=== PATIENT | female | born 1990 | race Caucasian/White ===

== ENCOUNTER 2020-08-13 19:19 | Emergency (ER) | payer BC, SELFPAY ==
[2020-08-13 20:04] VITALS: BP 140/90; PULSE 81; RESP 19; TEMP 36.6; O2SAT 98; BMI 23.8
--- NOTE | 2020-08-13 20:19 | HMH.EDUTC ---
[facility] Disposition Clinical Impression: Exposure to COVID-19 virus, Encounter for laboratory testing for COVID-19 virus Disposition: Home, Self-Care Condition on Discharge: Good Instructions: Preventing the Spread of Coronavirus Discharge Instructions Additional Instructions: *Monitor Temp, Over the counter Motrin or Tylenol as directed/as needed Tylenol every 4 hours and Motrin every 6 hours (as long as your family doctor has told you that you can take it) for fever or pain. and straight to ER if unable to lower temp less than 101.0 after medication given *Warm salt water gargles may help to soothe the throat *Throat Lozenges *Warm fluids like tea with honey may help to soothe the throat *Sleep elevated *Humidifier/Vaporizer Follow up IMMEDIATELY for new or worsening symptoms or no Noticeable improvement over the next 48-72 hours. 911 for difficulty breathing or swallowing You was tested for today for COVID19 your test result should be back later this tonight or early in the morning call back tomorrow after 9am to the [facility] to see if your test results are back and the result You was given a handout with instructions for Self Quarantine and Self isolation for while you wait on test results and what to do if they are positive Referrals: Stephanie Saavedra [Primary Care Provider] - As needed Forms: Work/School Release Time of Disposition: 20:31 Medical Decision Making - Matias Inquiry Pt receiving controlled substance: No Matias was queried for this patient: No Vital Signs: 08/13/20 20:04 Temperature 97.9 F Temperature Source Oral Pulse Rate [Right Brachial] 81 Respiratory Rate 19 Blood Pressure [Right Arm] 140/90 Blood Pressure Mean [Right Arm] 106 Blood Pressure Source [Right Arm] Automatic Cuff Blood Pressure Position [Right Arm] Sitting 02 Sat by Pulse Oximetry 98 Oxygen Delivery Method Room Air Orders (Tests/Meds): ORDERS Category Date Time Status Covid-19 Nasal PCR ([facility]) Routine Lab 08/13/20 19:40 Received [facility] HPI - General Stated complaint: wants COVID test, Time Seen by Provider: 08/13/20 20:19 Mode of Arrival: Ambulatory Source of Information: Patient Limitations: No Limitations Description of Symptoms (Recalled from Triage Doc. by RN): PATIENT C/O RUNNY NOSE, COUGH AND BODY ACHES. REQUESTING COVID TESTING D/T EXPOSURE HEENT Symptoms (Recalled from RN notes): Yes Resp Symptoms (Recalled from RN notes): No Skin Symptoms (Recalled from RN notes): No MS Symptoms (Recalled from RN notes): No Functional Status (Recalled from RN notes): WNL - History of Present Illness Provider Complaint: Patient states that her and two kids tested positive for COVID today States that her symptoms just started today with nasal congestion, runny nose cough and feeling achy all over States that after they tested positive the health dept recommended that she get tested too so she came in - Related Data Allergies Allergy/AdvReac Type Severity Reaction Status Date / Time acetaminophen [From Percocet] Allergy Verified 08/13/20 20:10 guaifenesin [From Robitussin] Allergy Verified 08/13/20 20:10 oxycodone [From Percocet] Allergy Verified 08/13/20 20:10 pseudoephedrine Allergy Verified 08/13/20 20:10 [From Sudafed] - Worker's Comp Is this a Worker's Comp case?: No [facility] History - Hepatitis A Screen Drug use history?: No High risk sexual behaviors?: No History of sexually transmitted infection?: No Currently employed?: No Childcare worker?: No Do you have indoor plumbing?: Yes Do you have electricity?: Yes Attestation statement:: This patient has been screened for Hepatitis A risk factors. I have reviewed the patient's past medical history: Yes - Social History Alcohol Intake: never Occupational Status: other ROS Obtained: Yes All systems reviewed & no additional complaints, Yes Systems reviewed as appropriate & no additional complaints - Constitutional Constitutional: R
[2020-08-13 20:43] VITALS: BP 140/90; PULSE 81; RESP 19; TEMP 36.6; O2SAT 98
== END 2020-08-13 20:44 | disposition home or self-care (01) ==
PROVIDERS: Emergency Provider Nurse Practitioner; PCP Family Medicine
DX: U07.1 COVID-19 (principal)
CPT/HCPCS: 99201; U0003